=== PATIENT | male | born 1990 ===

== ENCOUNTER 2018-04-10 03:34 | Emergency (ER) | payer MEDICAID ==
[2018-04-10 03:43] VITALS: TEMP 98
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
[2018-04-10 05:08] VITALS: BP 120/63
[2018-04-10 06:59] VITALS: PULSE 72; RESP 18; O2SAT 99
== END 2018-04-10 06:23 | disposition home or self-care (01) ==
LOC: H.ER 03:34
DX: F19.10 Other psychoactive substance abuse, uncomplicated (principal); Z86.59 Personal history of other mental and behavioral disorders; Z00.8 Encounter for other general examination; E78.5 Hyperlipidemia, unspecified